=== PATIENT | female | born 1965 | race Caucasian/White ===

== ENCOUNTER 2017-03-14 10:08 | Emergency (ER) | payer BC ==
[~2017-03-14] VITALS: Ht 152.4 cm; Wt 59.1 kg
[2017-03-14] MEDS ORDERED: MORPHINE SULFATE 4 MG/ML, 1ML IVPush PRN (11:00)
[2017-03-14] MEDS ORDERED: ONDANSETRON 2MG/ML, 2ML IVPush ONE (11:00)
[2017-03-14] MEDS ORDERED: SODIUM CHLORIDE 0.9% 1,000ML IVBOLUS ONE (11:00)
[2017-03-14] MEDS ORDERED: ONDANSETRON 2MG/ML, 2ML ONE (11:15)
[2017-03-14] MEDS ORDERED: MORPHINE SULFATE 4 MG/ML, 1ML ONE (11:15)
[2017-03-14 11:19] LABS: HEMATOCRIT 38.7 % (34.6-47.8); HEMOGLOBIN 12.9 g/dL (11.7-16.4)
[2017-03-14 11:32] LABS: ASPARTATE AMINO TRANSFERASE 59 U/L (15-37); BLOOD UREA NITROGEN 10 mg/dL (7-18)
[2017-03-14] MEDS ORDERED: CEFTRIAXONE PMX 1GM/50ML 50 ML IV ONE (12:30)
[2017-03-14] MEDS ORDERED: CEFTRIAXONE PMX 1GM/50ML 50 ML ONE (12:46)
[2017-03-14 13:18] VITALS: BP 135/70
== END 2017-03-14 13:20 | disposition home or self-care (01) ==
LOC: ED 11:01
DX: R79.89 Other specified abnormal findings of blood chemistry (principal); N30.00 Acute cystitis without hematuria; N12 Tubulo-interstitial nephritis, not specified as acute or chronic
CPT/HCPCS: 36415; 80053; 81001; 84703; 85025; 87077; 87086; 96361; 96365; 96375; 99284; J0696; J2405; J7030; 87186